=== PATIENT | male | born 1995 | race African-American/Black ===

== ENCOUNTER 2016-05-30 16:30 | Outpatient (CLI) ==
[2016-03-14 14:43] VITALS: BMI 25.8
--- NOTE | 2016-05-30 16:53 | DI ---
EXAM: Chest two view, frontal and lateral views. HISTORY: Respiratory disorder. COMPARISON: 03/14/2016. FINDINGS: The heart size is normal. There is no pulmonary vascular congestion. The lungs are aayush r. No pleural effusion or pneumothorax is seen. No acute osseous abnormality identified. Right co nvex thoracic spinal curvature noted. Since the prior study, there has been no significant interval change. IMPRESSION: No acute cardiopulmonary process.
== END 2016-05-30 16:31 | disposition home or self-care (01) ==
LOC: RAD 16:30
PROVIDERS: ATTEND Nurse Practitioner Family
DX: J98.8 Other specified respiratory disorders (principal)

== ENCOUNTER 2017-04-25 12:54 | Outpatient (CLI) ==
[2016-03-14 14:43] VITALS: BMI 25.8
[2017-04-25 13:03] LABS: BASOPHILS # (AUTO) 0.1 K/uL (0-0.2); EOSINOPHILS # (AUTO) 0.7 K/ul (0.0-0.7); HEMATOCRIT 42.4 % (42.0-52.0); IMMATURE GRANULOCYTE % (AUTO) 0.2 % (0.0-5.0); LYMPHOCYTES # (AUTO) 1.9 K/uL (0.60-3.4); LYMPHOCYTES % (AUTO) 38.6 (10.0-50.0); MEAN CORPUSCULAR HEMOGLOBIN 31.8 pg (27.0-31.0); MEAN CORPUSCULAR HGB CONC 35.4 (31.8-35.4); MONOCYTES # (AUTO) 0.6 K/uL (0.4-2.0); MONOCYTES % (AUTO) 11.3 (0-10); NEUTROPHILS # (AUTO) 1.7 K/ul (2.0-6.9); NEUTROPHILS % (AUTO) 34.9; PLATELET COUNT 208 10^3/uL (140-440); RED BLOOD COUNT 4.71 10^6/ul (4.70-6.10); WHITE BLOOD COUNT 4.87 K/ul (4.2-10.2)
[2017-04-25 13:14] LABS: ALBUMIN 3.8 g/dL (3.4-5.0); ALBUMIN/GLOBULIN RATIO 1.06; ANION GAP 13.1; BILIRUBIN,TOTAL 0.48 mg/dL (0.00-1.20); BUN/CREATININE RATIO 12.08; CALCIUM 9.4 mg/dL (8.2-10.2); CHOL/HDL RATIO 3.1 (4.5-6.4); CREATININE 0.91 mg/dL (0.60-1.10); POTASSIUM 4.1 mmol/L (3.5-5.1); TOTAL PROTEIN 7.4 g/dL (6.4-8.2)
== END 2017-04-25 12:55 | disposition home or self-care (01) ==
LOC: LAB 12:54
PROVIDERS: ATTEND Nurse Practitioner Family
DX: Z00.00 Encounter for general adult medical examination without abnormal findings (principal)
CPT/HCPCS: 36415; 80053; 80061; 85025

== ENCOUNTER 2017-11-12 12:44 | Emergency (ER) ==
[2017-11-12 12:49] VITALS: BP 146/79; TEMP 97.6; BMI 33.0
--- NOTE | 2017-11-12 13:49 | CT ---
EXAM: CT of the right knee without contrast History: Right knee pain and trauma. Technique: Multiplanar CT images through the right knee were obtained without the administration of IV contrast Findings: No acute fracture or dislocation. Previous ACL repair. Mild tricompartmental joint space narrowing. Small to moderate knee joint effusion. Small Winchester's cyst measuring 1.8 cm x 2.1 cm. Ant erior soft tissue swelling. Impression: 1. No acute osseous abnormality. 2. Evidence of previous ACL repair. 3. Small to moderate joint effusion. 4. Small Winchester's cyst. 5. Anterior soft tissue swelling. 6. Mild arthritis 7. If pain persists, recommend further evaluation with MRI.
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
== END 2017-11-12 14:12 | disposition home or self-care (01) ==
LOC: ED 12:44
DX: M25.561 Pain in right knee (principal); W22.8XXA Striking against or struck by other objects, initial encounter
CPT/HCPCS: 99283